=== PATIENT | female | born 1980 | race Caucasian/White ===

== ENCOUNTER 2018-05-15 04:24 | Emergency (ER) | payer OTHER ==
[2018-05-15] MEDS ORDERED: ASPIRIN 81 MG CHEW TAB PO ONE (04:33)
[2018-05-15] MEDS ORDERED: ALPRAZOLAM 0.5 MG TABLET PO ONE (04:41)
--- NOTE | 2018-05-15 04:49 | ED Physician Documentation ---
Chest Pain - HISTORIAN Historian: patient - HPI Stated Complaint: left chest pain Chief Complaint: Chest Pain Additional Information: Patient presents to ED with left sided chest pain, 5/10, dullache/pressure with radiation down her left arm. Patient reports the pain began yesterday while she was having a migraine. She states it is not uncommon for her to hurt all over when she has a migraine so she did not think anything of her chest pain. Today, however, the chest pain woke her out of a sleep so she decided to come to the ER. She also reports a history of panic attacks. Patient reports an isolated episode of vomiting this morning. Denies shortness of breath. Onset: days ago (2) Timing: still present Duration: waxing, waning Last known Well Date: 05/14/18 Last Known Well Time: 08:00 Context: other (migraine) Severity: moderate Quality: pressure, dull, aching Chest Pain Radiation: arms (left) Chest Pain Signs/Symptoms: vomiting Worsened By: nothing Relieved By: nothing - ROS CONST: denies: fever MS/LYMPH: none GI/: vomiting EYES/ENT: denies: none SKIN/ENDO: none NEURO/PSYCH: headache, anxiety - PAST HX [place] risk factors: other (hypothyroid) DVT/PE Risk Factors: none TAD/AAA risk factors: none Neuro deficit: none GI disease: none Lung disease: none Surgeries/Procedures: none Allergies/Adverse Reactions: Allergies Allergy/AdvReac Type Severity Reaction Status Date / Time No Known Allergies Allergy Verified 05/15/18 04:35 Home Medications: Ambulatory Orders Medication Instructions Recorded Thyroid,Pork [Nature-Throid] 65 mg PO DAILY u2 07/10/16 - SOCIAL HX Smoking History: non-smoker Alcohol Use: none Drug Use: none - FAMILY HX Family HX: none - VITAL SIGNS Vital Signs: Vital Signs Temp Pulse Resp BP Pulse Ox 141/92 05/27/14 10:19 - REVIEWED ASSESSMENTS Nursing Assessment Reviewed: Yes Vitals Reviewed: Yes Progress - Progress Progress: 0500 Patient states chest pain is improved to 3/10 after Xanax 0527 Patient reports chest pain is now 1/10 - EKG/XRAY/CT EKG: NSR Comments: 80 bpm ED Results Lab/Radiology - Lab Results Lab Results: CBC, CMP within normal limits. Troponin 0.01 - Radiology Radiology Impressions: Report Submission Date: May 15, 2018 5:01:30 AM CDT Patient Study Name: KIRTI DAMON Date: May 15, 2018 4:44:34 AM CDT Modality Type: DX Gender: F Description: CHEST 1VIEW : 82 Institution: [facility] Physician: GUADALUPE COOPER Portable chest History: Chest pain Portable chest dated May 15, 2018 demonstrates a normal cardiomediastinal silhouette. Pulmonary vascularity is normal. Lungs are clear. Impression: No active disease. Electronically signed on May 15, 2018 5:01:30 AM CDT by: Maritza Shea - Orders Orders: ED Orders Category Date Time Status Place IV Lock 1T Care 05/15/18 04:33 Ordered CHEST 1VIEW [RAD] Stat Exams 05/15/18 Ordered CBC/PLATELET/DIFF Routine Lab 05/15/18 Ordered CMP Routine Lab 05/15/18 Ordered TROPONIN I (cTnI) Stat Lab 05/15/18 Ordered Alprazolam [Xanax] Med 05/15/18 04:41 Once 0.5 mg PO NOW ONE Aspirin [Mya] Med 05/15/18 04:33 Once 324 mg PO NOW ONE EKG WITH COMPARISON Stat Ther 05/15/18 Ordered Chest Pain Physical Exam - EXAM General Appearance: no acute distress, alert, anxious EENT: KAYLEEN Neck: nml inspection Respiratory: no resp. distress, chest non-tender, nml breath sounds CVS: reg. rate & rhythm, no murmur Abdomen: soft, normal bowel sounds, non-tender Skin: warm/dry Extremities: non-tender, no evidence of injury, no edema Neuro: oriented X3, motor nml Discharge Clincal Impression: Non-cardiac chest pain Additional Instructions: 1. Tylenol and/or Ibuprofen as needed for pain 2. Follow up with PCP within 1 week 3. Return to ED for new or worsening symptoms Condition: Stable Disposition: 01 HOME, SELF-CARE Decision to Admit: NO Date of Decison to Admit: 05/15/18 Decision Time: 06:52
--- NOTE | 2018-05-15 05:27 | Diagnostic Imaging Report ---
GUADALUPE COOPER [facility] [id number] [facility] [address] [place], [place]. [address] Report Submission Date: May 15, 2018 5:01:30 AM CDT Patient Study Name: KIRTI DAMON Date: May 15, 2018 4:44:34 AM CDT Modality Type: DX Gender: F Description: CHEST 1VIEW : 82 Institution: [facility] Physician: GUADALUPE COOPER Portable chest History: Chest pain Portable chest dated May 15, 2018 demonstrates a normal cardiomediastinal silhouette. Pulmonary vascularity is normal. Lungs are clear. Impression: No active disease. Electronically signed on May 15, 2018 5:01:30 AM CDT by: Maritza DUMONT
[2018-05-15 06:40] LABS: eGFR (Non-African) > 60
[2018-05-15 06:48] LABS: EOSINOPHILS % 2 % (0-7); MONOCYTES % 12 % (0-11); SEGMENTED NEUTROPHILS % 52 % (39-79)
[2018-05-15 07:10] VITALS: BP 135/89
== END 2018-05-15 07:03 | disposition home or self-care (01) ==
LOC: ED 04:24
DX: R07.89 Other chest pain (principal)
CPT/HCPCS: 36415; 71045; 80053; 84484; 85025; 99283; 99284; S1016